=== PATIENT | male | born 1955 | race Caucasian/White ===

== ENCOUNTER 2022-01-31 09:34 | Outpatient (CLI) | payer BC, SELFPAY ==
--- OUTSIDE RECORDS SUMMARY | 2022-01-31 09:38 | XMS_ITS | Clinical Summary ---
:1955 Author Organization [facility] [place] [address] Care Team Providers Name Role Phone Ronnie Marquez MD Primary Care Provider Allergies No known active allergies Medications Medication Sig Dispensed Refills Start Date End Date Status HYDROcodone-acetamin Take 1-2 tablets by 0 Active ophen, 5-325 mg, mouth every 6 hours (NORCO) per tablet if needed for Pain Max acetaminophen dose: 4000 mg in 24 hrs. traMADoL (ULTRAM) 50 Take 50 mg by mouth 0 Active mg tablet every 6 hours. alfuzosin Take 10 mg by mouth 0 Active (UROXATRAL) 10 mg 2 times daily. Sustained-Release tablet losartan (COZAAR) Take 100 mg by mouth 0 Active 100 mg tablet once daily. atorvastatin Take 20 mg by mouth 0 Active (LIPITOR) 20 mg at bedtime. tablet finasteride Take 5 mg by mouth 0 Active (PROSCAR) 5 mg once daily. tablet aspirin chewable 81 Take 81 mg by mouth 0 Active mg chewable tablet once weekly. HYDROcodone-acetamin Take 1 tablet by 5 tablet 0 05/13/2020 Active ophen, 5-325 mg, mouth every 6 hours (NORCO) per if needed for Pain tabletIndications: Max acetaminophen Post-operative state dose: 4000 mg in 24 hrs. Active Problems No known active problems Social History Tobacco Use Types Packs/Day Years Used Date Former Smoker Smokeless Tobacco: Never Used Comments: quit at age 57 Alcohol Use Standard Drinks/Week Comments Yes 0 (1 standard drink = 0.6 oz pure alcoho l) Sex Assigned at Date Recorded Not on file Obstetrics History Last Filed Vital Signs Vital Sign Reading Time Taken Comments Blood Pressure 148/72 05/13/2020 9:00 AM BOAT OUTFITTER Pulse 74 05/13/2020 9:00 AM BOAT OUTFITTER Temperature 36.2 ??C (97.2 ??F) 05/13/2020 9:00 AM BOAT OUTFITTER Respiratory Rate 16 05/13/2020 9:00 AM BOAT OUTFITTER Oxygen Saturation 98% 05/13/2020 9:00 AM BOAT OUTFITTER Inhaled Oxygen Concentration - - Weight 105.5 kg (232 lb 9.4 oz) 05/13/2020 6:21 AM BOAT OUTFITTER Height 167.6 cm (5' 6) 05/13/2020 6:21 AM BOAT OUTFITTER Body Mass Index 37.54 05/13/2020 6:21 AM BOAT OUTFITTER Plan of Treatment Not on file Results Not on filefrom Last 3 Months Insurance Payer Benefit Plan / Subscriber ID Effective Dates Phone Addre ss Type Group BLUE CROSS [place] BLUE ADVANTAGE [id number] 2019-Presen [address] [address] [facility] [place] [address] (Home) [place] [id number] Advance Directives Latest Code Status on File Code Status Date Activated Date Inactivated Comments Full Code 05/13/2020 6:02 AM 05/13/2020 11:46 AM Code Status Discussion: Not Discussed Care Teams Waiver Analyst Relationship Specialty Start Date End Date Ronnie Marquez MD PCP - General Family Practice 05/06/[address] [place] [address]
--- OUTSIDE RECORDS SUMMARY | 2022-01-31 09:38 | XMS_ITS ---
:1955 Author Care Team Providers Name Role Phone ZELALEM XIAO MD Primary Care Provider [phone] Allergies Code Code System Name Reaction Severity Status Onset NKDA ? Medications Name Status Start Date Stop Date ? ? alfuzosin ER 10 mg tablet,extended release 24 hr Active ? Not available amlodipine 5 mg tablet Completed ? 0 TK 1 T PO D amoxicillin 875 mg-potassium clavulanate 125 mg tablet Completed ? 05/04/2020 atorvastatin 20 mg tablet Active ? Not av ailable azithromycin 250 mg tablet Completed ? 05/04 cephalexin 500 mg capsule Completed ? 2019 TK 1 C PO QID finasteride 5 mg tablet Active ? Not avai lable TK 1 T PO D hydrocodone 5 mg-acetaminophen 325 mg tablet Active ? Not available TAKE 1 TO 2 TABLETS BY MOUTH EVERY 6 HOURS NEEDED levofloxacin 500 mg tablet Active ? Not a vailable TK 1 T PO D losartan 100 mg tablet Active ? Not avail able metoprolol succinate ER 50 mg tablet,extended release 24 Complet ed ? 05/04/2020 hr phentermine 37.5 mg capsule Active ? Not available TK 1 C PO D prednisone 20 mg tablet Completed ? 05/04/20 20 TK 1 T PO D sulfamethoxazole 800 mg-trimethoprim 160 mg tablet Completed ? 05/04/2020 TK 1 T PO BID tramadol 50 mg tablet Active ? Not availa ble Virtussin AC 10 mg-100 mg/5 mL oral liquid Completed ? 05/04/2020 TK 5 TO 10 ML PO Q 6 H Problems Name Status Onset Date Source ? Calculus of Kidney and Ureter Active 03/14/2019 De story Procedures Date Name Performed by ? ? Appendectomy Information not avai lable Results Lab Results Date Name Specimen Result Interpretation Description Value Range Status Address ? ? Urinalysis, Dipstick Urine ? No observation recorded. ? Urinalysis, Dipstick ? Color-Status Yellow ? Clarity-Status Clear ? Blood-Status Large ? ? Past Encounters None recorded. Social History Tobacco Smoking Status Former Smoker Vaccine List None recorded. Plan of Care Reminders Provider Appointments None recorded. ? ? Lab None recorded. ? ? Referral None recorded. ? ? Procedures None recorded. ? ? Surgeries None recorded. ? ? Imaging None recorded. ? ? Vitals Height Weight BMI 5 ft 6 in 225 lbs 36.3 kg/m2
[2022-01-31 16:20] LABS: Potassium* 5.3 mmol/L (3.6-5.1); Sodium* 138 mmol/L (135-149)
[2022-01-31 16:23] LABS: Creatinine* 0.6 mg/dL (0.5-1.5); Estimated Glomerular Filt Rate 108 ml/min
[2022-01-31 16:24] LABS: Calcium* 9.4 mg/dL (8.4-10.6); Triglycerides* 67 mg/dL (40-149)
[2022-01-31 16:46] LABS: PSA Screen* 1.95 ng/mL (0.10-4.00)
[2022-01-31 17:10] LABS: Blood Urea Nitrogen* 18 mg/dL (7-30); Carbon Dioxide* 29 mmol/L (20-32); Chloride* 104 mmol/L (96-114); Cholesterol* 179 mg/dL (90-199); Glucose* 110 mg/dL (60-115); HDL Cholesterol* 51 mg/dL (>=40); LDL Cholesterol Calculated 115 mg/dL (<100)
== END 2022-01-31 09:35 | disposition home or self-care (01) ==
PROVIDERS: PCP Family Medicine; Visit Provider Family Medicine
DX: Z00.00 Encounter for general adult medical examination without abnormal findings (principal); E78.5 Hyperlipidemia, unspecified; I10 Essential (primary) hypertension; N40.0 Benign prostatic hyperplasia without lower urinary tract symptoms; R60.9 Edema, unspecified; Z12.5 Encounter for screening for malignant neoplasm of prostate; Z13.6 Encounter for screening for cardiovascular disorders
CPT/HCPCS: 80048; 80061; 84153

== ENCOUNTER 2022-04-17 12:55 | Emergency (ER) | payer BC, SELFPAY ==
[2022-04-17 13:00] VITALS: BP 147/85; PULSE 79; RESP 18; TEMP 36.2; O2SAT 96; BMI 36.2
--- NOTE | 2022-04-17 13:11 | CRLHL7_ITS ---
For Patients: As a result of the Cures Act, medical imaging exams and procedure reports are released immediately into your electronic medical record. You may view this report before your referring provider. If you have questions, please contact your health care provider. INDICATION: Knee injury from fall TECHNIQUE: Knee radiograph 3 views left COMPARISON: 06/07/2018 FINDINGS: Bone: There is comminuted, depressed intra-articular fracture of the lateral tibial plateau. Joint: Mild 3 compartment osteoarthritis is present. Minimal chondrocalcinosis is seen. A small joint effusion is present, likely due to hemarthrosis. Soft tissue: Unremarkable. No radiopaque foreign bodies are seen. IMPRESSIONS: 1. There is comminuted, depressed intra-articular fracture of the lateral tibial plateau. 2. A small joint effusion is present, likely due to hemarthrosis. Dictated by Saul Cramer MD @ 04/17/2022 1:38:02 PM Dictated by: Saul Cramer MD @ 04/17/2022 13:38:06 (Electronically Signed)
--- NOTE | 2022-04-17 14:38 | ED.LOWEXIN ---
HPI - Extremity Injury (Lower) General Chief Complaint: Extremity Pain/Injury, Lower Stated Complaint: Fell 6 ft off ladder, hurt left knee Time Seen by Provider: 04/17/22 14:34 History of Present Illness HPI Narrative: This 66-year-old male comes in with injury to his left knee. He states that he had climbed up a ladder and was attempting to step from the ladder onto a scaffolding. The ladder fell away from the scaffolding in the scaffolding fell away from a ladder causing him to fall. He states that he went down about 6 ft and landed on his feet and then onto his left knee and his left side. Since then he has not been able to ambulate on his left knee. He did not have loss of consciousness and does not report any other injury. Related Data Home Medications Medication Instructions Recorded Confirmed aspirin 81 mg tablet,delayed 81 mg PO QDAY 01/03/22 04/17/22 release Previous Rx's Medication Instructions Recorded alfuzosin 10 mg tablet,extended 10 mg PO BID #180 tabs 01/19/22 release 24 hr atorvastatin 20 mg tablet 20 mg PO QPM #90 tabs 01/31/22 finasteride 5 mg tablet 5 mg PO QDAY #90 tabs 01/31/22 losartan 100 mg tablet 100 mg PO QDAY #90 tabs 01/31/22 tramadol 50 mg tablet 50 mg PO Q6H PRN pain #60 tabs 02/22/22 Crutches- Adult #1 ea 04/17/22 hydrocodone 5 mg-acetaminophen 325 1 tab PO Q4-6H PRN pain #20 tabs 04/17/22 mg tablet Allergies Allergy/AdvReac Type Severity Reaction Status Date / Time No Known Drug Allergies Allergy Verified 04/17/22 13:06 Review of Systems Status of ROS: Reports: 10 or more systems reviewed and unremarkable except as noted in History and below Narrative: Constitutional: No fevers, no weight gain or loss. Eyes: No discharge. No vision changes. HENT: No congestion, no sore throat, no ear pain. Cardiovascular: No chest pain, no palpitations. Respiratory: No shortness of breath, no wheezes, no cough. Gastrointestinal: No abdominal pain, no vomiting, no diarrhea. Genitourinary: No dysuria, no hematuria. Musculoskeletal: Left knee injury as described above. Skin: No rashes, no pruritis. Neurological: No dizziness, weakness, sensory change, speech change. Endo/Heme/Allergies: No bruising or bleeding. No polydipsia. Pysch: no suicidality, no anxiety, no insomnia. All other systems reviewed and are negative. [facility] Medical History History of needle biopsy of prostate with negative result Surgical History History of arthroscopy of right knee Family History Other Diabetes Prostate cancer Social History Smoking Status: Former smoker Exam Narrative: Exam Narrative: Constitutional: Well-developed, well-nourished, no acute distress. HEENT: Normocephalic, atraumatic. Neck: Normal range of motion. Nontender. Supple. Heart: Intact distal pulses. Lungs: No chest discomfort. No wheezes, rhonchi, or rales. Abdomen: Nontender. Back: Normal range of motion. Extremities: Left knee has diffuse tenderness. He is unable to bear weight on his left knee without severe pain. There is no obvious effusion. He is able to lift his leg from the bed without difficulty. Skin: Intact. No rash. Warm. No erythema or pallor. Neurologic: No altered sensation. No weakness. Alert and oriented. Psychiatric: No suicidality. No anxiety or depression. No insomnia. Nursing notes and vitals signs are reviewed. Const: Vital Signs, click to edit/add: Vital Signs - 24 hr 04/17/22 13:00 Temperature 97.2 F L Pulse Rate [Right Pulse Oximeter] 79 Respiratory Rate 18 Blood Pressure [Le ft Upper Arm] 147/85 H Pulse Oximetry 96 Oxygen Delivery Me thod Room Air Course Vital Signs Vital signs: Initial Vital Signs Temperature 97.2 F L 04/17/22 13:00 Temperature Source Temporal Artery Scan 04/17/22 13:00 Pulse Rate 79 04/17/22 13:00 Respiratory Rate 18 04/17/22 13:00 Blood Pressure 147/85 H 04/17/22 13:00 Blood Pressure Mean 105 04/17/22 13:00 Blood Pressure Position Sitting 04/17/22 13:00 Pulse Oximetry 96 04/17/22 13:00 Oxygen Delivery Method 04/17/22 13:00 Vital Signs Temperature 97.2 F L 04/17/22 13:00 Pulse Rate 79 04/17/22 13:00 Respiratory Rate 18 04/17/22 13:00 Blood Pressure 147/85 H 04/17/22 13:00 Pulse Oximetry 96 04/17/22 13:00 Oxygen Delivery Method 04/17/22 13:00 Temperature 97.2 F L 04/17/22 13:00 Pulse Rate 79 04/17/22 13:00 Respiratory Rate 18 04/17/22 13:00 Blood Pressure 147/85 H 04/17/22 13:00 Pulse Oximetry 96 04/17/22 13:00 Oxygen Delivery Method 04/17/22 13:00 MDM - Extremity Injury (Lower) MDM Narrative Medical decision making narrative: This patient comes in with an injury to his left knee. He has no tenderness in his back and no loss of consciousness or other injury. X-ray imaging of the left knee does show a tibial plateau fracture. The patient received a E knee immobilizer and crutches. Arrangements are made for follow-up appointment with orthopedic clinic. He received a prescription for [place] also. Imaging Data XR L Knee: Radiologist's impression: 1. There is comminuted, depressed intra-articular fracture of the lateral tibial plateau. 2. A small joint effusion is present, likely due to hemarthrosis. Discharge Plan Discharge Clinical Impression: Closed fracture of tibial plateau Patient Disposition: Home, Self-Care Condition: Unchanged Additional Instructions: Wear knee immobilizer and use crutches. No weight-bearing on the left leg. Take pain medicine as needed and directed. Follow up with orthopedic clinic as scheduled. Prescriptions: New hydrocodone-acetaminophen 5-325 mg tablet 1 tab PO Q4-6H PRN (Reason: pain) Qty: 20 0RF (DME) Crutches- Adult Misc See Rx Instructions .ROUTE .MEDSUPPLY Qty: 1 0RF Rx Instructions: As directed No Action atorvastatin 20 mg tablet 20 mg PO QPM Qty: 90 3RF finasteride 5 mg tablet 5 mg PO QDAY Qty: 90 3RF losartan 100 mg tablet 100 mg PO QDAY Qty: 90 3RF aspirin 81 mg tablet,delayed release (DR/EC) 81 mg PO QDAY alfuzosin 10 mg tablet extended release 24 hr 10 mg PO BID Qty: 180 1RF Rx Instructions: administer after the same meal each day tramadol 50 mg tablet 50 mg PO Q6H PRN (Reason: pain) Qty: 60 1RF Follow Up/Referrals: Ronnie Marquez MD [Primary Care Provider] - Stand Alone Forms: [employer] Info Instructions
--- OUTSIDE RECORDS SUMMARY | 2022-04-17 14:53 | XMS_ITS ---
:1955 Author Care Team Providers Name Role Phone ZELALEM XIAO MD Primary Care Provider [phone] Allergies Code Code System Name Reaction Severity [...] Calculus of Kidney and Ureter Active 03/14/2019 Vt story Procedures Date Name Performed by ? [...]
--- OUTSIDE RECORDS SUMMARY | 2022-04-17 14:53 | XMS_ITS | Clinical Summary ---
:1955 Author Organization [employer] [facility] [place] [address] Care Team Providers Name Role Phone Ronnie [...] Comments Blood Pressure 148/72 05/13/2020 9:00 AM REVENUE FIELD AUDITOR Pulse 74 05/13/2020 9:00 AM REVENUE FIELD AUDITOR Temperature 36.2 ??C (97.2 ??F) 05/13/2020 9:00 AM REVENUE FIELD AUDITOR Respiratory Rate 16 05/13/2020 9:00 AM REVENUE FIELD AUDITOR Oxygen Saturation 98% 05/13/2020 9:00 AM REVENUE FIELD AUDITOR Inhaled Oxygen Concentration - - Weight 105.5 kg (232 lb 9.4 oz) 05/13/2020 6:21 AM REVENUE FIELD AUDITOR Height 167.6 cm (5' 6) 05/13/2020 6:21 AM REVENUE FIELD AUDITOR Body Mass Index 37.54 05/13/2020 6:21 AM REVENUE FIELD AUDITOR Plan of Treatment Not on file Results Not on filefrom Last 3 Months Insurance Payer Benefit Plan / Subscriber ID Effective Dates Phone Addre ss Type Group BLUE CROSS [place] BLUE ADVANTAGE [id number] 2019-Presen [address] [address] [facility] [address] (Home) [place] [id number] Advance Directives Latest Code Status on File Code Status Date Activated Date Inactivated Comments Full Code 05/13/2020 6:02 AM 05/13/2020 11:46 AM Code Status Discussion: Not Discussed Care Teams Tack Cleaner Relationship Specialty Start Date End Date Ronnie Marquez MD PCP - General Family Practice 05/06/[address] [place] [address]
== END 2022-04-17 15:15 | disposition home or self-care (01) ==
LOC: ED 14:50
PROVIDERS: Emergency Provider Emergency Medicine Emergency Medical Services; PCP Family Medicine
DX: S82.109A Unspecified fracture of upper end of unspecified tibia, initial encounter for closed fracture (principal)
CPT/HCPCS: 73562; 99283; 99284; 99285

== ENCOUNTER 2022-06-29 15:00 | Outpatient (RCR) | payer BC, SELFPAY | END 2022-08-15 09:03 | disposition home or self-care (01) | PROVIDERS: PCP Family Medicine; Visit Provider Orthopaedic Surgery | DX: S82.143D Displaced bicondylar fracture of unspecified tibia, subsequent encounter for closed fracture with routine healing (principal); Z51.89 Encounter for other specified aftercare | CPT/HCPCS: 97110; 97116; 97162 ==

== ENCOUNTER 2023-05-08 08:52 | Outpatient (CLI) | payer MEDICARE, SELFPAY | END 2023-05-08 08:53 | disposition home or self-care (01) | PROVIDERS: PCP Family Medicine; Visit Provider Family Medicine | DX: I10 Essential (primary) hypertension (principal); Z12.5 Encounter for screening for malignant neoplasm of prostate | CPT/HCPCS: 80048; 80061; 84153 ==

== ENCOUNTER 2024-02-25 13:14 | Outpatient (CLI) | payer MEDICARE, SELFPAY ==
--- OUTSIDE RECORDS SUMMARY | 2024-02-25 13:18 | XMS_ITS | Clinical Summary ---
Author Organization [facility] Address [place], [place] [address] Care Team Providers Care Food Consultant Name Role Phone Ronnie Marquez MD Primary Care Provider [phone] Allergies No known active allergies Medications Medication Sig Dispensed Refills Start Date End Date Status HYDROcodone-acetam inophen, 5-325 mg, (NORCO) per tablet Take 1-2 tablets by mouth every 6 hours if needed for Pain Max acetaminophen dose: 4000 mg in 24 hrs. Active traMADoL (ULTRAM) 50 mg tablet Take 50 mg by mouth every 6 hours. Active alfuzosin (UROXATRAL) 10 mg Sustained-Release tablet Take 10 mg by mouth 2 times daily. Active losartan (COZAAR) 100 mg tablet Take 100 mg by mouth once daily. Active atorvastatin (LIPITOR) 20 mg tablet Take 20 mg by mouth at bedtime. Active finasteride (PROSCAR) 5 mg tablet Take 5 mg by mouth once daily. Active aspirin chewable 81 mg chewable tablet Take 81 mg by mouth once weekly. Active HYDROcodone-acetam inophen, 5-325 mg, (NORCO) per tabletIndications: Post-operative state Take 1 tablet by mouth every 6 hours if needed for Pain Max acetaminophen dose: 4000 mg in 24 hrs. 5 tablet 05/13/2020 Active Active Problems No known active problems Social History Tobacco Use Types Packs/Day Years Used Date Smoking Tobacco: Former Smokeless Tobacco: Never Comments:quit at age 57 Alcohol Use Standard Drinks/Week Comments Yes 0 (1 standard drink = 0.6 oz pur e alcohol) Sex and Gender Information Value Date Recorded Sex Assigned at Not on file Gender Identity Not on file Sexual Orientation Not on file Obstetrics History Last Filed Vital Signs Vital Sign Reading Time Taken Comments Blood Pressure 148/72 05/13/2020 9:00 AM PAINTER SPRAY Pulse 74 05/13/2020 9:00 AM PAINTER SPRAY Temperature 36.2 ??C (97.2 ??F) 05/13/2020 9:00 AM CS T Respiratory Rate 16 05/13/2020 9:00 AM PAINTER SPRAY Oxygen Saturation 98% 05/13/2020 9:00 AM PAINTER SPRAY Inhaled Oxygen Concentration - - Weight 105.5 kg (232 lb 9.4 oz) 05/13/2020 6:21 AM PAINTER SPRAY Height 167.6 cm (5' 6) 05/13/2020 6:21 AM PAINTER SPRAY Body Mass Index 37.54 05/13/2020 6:21 AM PAINTER SPRAY Plan of Treatment Not on file Advance Directives * Full Code (Latest Code Status on File) Date Activated Date Inactivated Comments 05/13/2020 6:02 AM 05/13/2020 11:46 AM Question Answer Comments Code Status Discussion: Not Discussed Care Teams Food Consultant Relationship Specialty Start Date End Date Ronnie Marquez MD PCP - General Family Practice 05/06/20
--- OUTSIDE RECORDS SUMMARY | 2024-02-25 13:18 | XMS_ITS | Data Portability ---
Author Organization [facility], [facility] Address [address] [place] [address] Care Team Providers Care Insurance Adjustor Name Role Phone ZELALEM XIAO Primary Care Provider Assessment No assessment recorded. Plan of Treatment Reminders Order Date Submit Date Provider Last Modified By Organization Details Last Modified Time Details Appointments None recorded. Lab urinalysis, dipstick 2019 020 [email or web address] Not available 0 14:38:20 Referral None recorded. Procedures None recorded. Surgeries cystolithol apaxy (SURG) 2019 020 [email or web address] Not available 0 12:28:21 Imaging None recorded. Medication Orders None recorded. Patient TargetsNo targets recorded. Patient InstructionsNo instructions recorded. Reason for Referral None Reported. Results Created Date Observation Date Name Description Value Unit Range Abnormal Flag Note LastModifiedBy Organization Detail LastModifiedTime 05/04/2020 urina lysis , dipst ick Color-Status Yellow Not Available [facility] [address], [place], [address], 05/04/2020 14:37:48 05/04/2020 urina lysis , dipst ick Clarity-Stat us Clear Not Available [facility] [address], [place], [address], 05/04/2020 14:37:48 05/04/2020 urina lysis , dipst ick Blood-Status Large Not Available [facility] [address], [place], [address], 05/04/2020 14:37:48 Result Notes None recorded. Problems Name Problem SNOMED Code Status Onset Date Resolution Date Notes Provider Name and Address Organization Details Recorded Time Calculus of kidney and ureter 628170434 Active 2018 N20.2 : Calculus of kidney with calculus of ureter Not Available [facility] 0 02:04:28 Problem Notes None recorded. Procedures Surgical History Date Name Laterality Status Provider Name and Address Organization Details Recorded Time Appendectomy completed Charan King MD [address], [place], [address], [facility] 05/04/2020 14:35:47 Imaging Results None recorded. Procedure Notes None recorded. Medical Equipment None Reported. Allergies No known drug allergies Medications Name Sig Start Date Stop Date Status Note LastModified by Organization Details LastModified Time atorvastatin 20 mg tablet TAKE 1 TABLET BY MOUTH AT BEDTIME active Not Available Not Available No t Available azithromycin 250 mg tablet 05/04 completed Not Available Not Available Not Available metoprolol succinate ER 50 mg tablet,exten ded release 24 hr TK 1 T PO D 05/04 completed Not Available Not Available Not Available hydrocodone 5 mg-acetamino phen 325 mg tablet TAKE 1 TO 2 TABLETS BY MOUTH EVERY 6 HOURS NEEDED active Not Available Not Available No t Available prednisone 20 mg tablet TK 1 T PO D 05/04 completed Not Available Not Available Not Available amlodipine 5 mg tablet TK 1 T PO D 05/04 completed Not Available Not Available Not Available sulfamethoxa zole 800 mg-trimethop rim 160 mg tablet TK 1 T PO BID 05/04 completed Not Available Not Available Not Available tramadol 50 mg tablet TK 1 TO 2 TS PO Q 6 H PRN active Not Available Not Available No t Available cephalexin 500 mg capsule TK 1 C PO QID 05/04 completed Not Available Not Available Not Available levofloxacin 500 mg tablet TK 1 T PO D active Not Available Not Available No t Available losartan 100 mg tablet TK 1 T PO D active Not Available Not Available No t Available finasteride 5 mg tablet TK 1 T PO D active Not Available Not Available No t Available phentermine 37.5 mg capsule TK 1 C PO D active Not Available Not Available No t Available amoxicillin 875 mg-potassium clavulanate 125 mg tablet TK ONE T PO BID FOR 10 DAYS 05/04 completed Not Available Not Available Not Available alfuzosin ER 10 mg tablet,exten ded release 24 hr TK 1 T PO BID active Not Available Not Available No t Available Virtussin AC 10 mg-100 mg/5 mL oral liquid TK 5 TO 10 ML PO Q 6 H 05/04 completed Not Available Not Available Not Available Vitals Date Recorded Body height Body mass index (BMI) Body weight Provider Name and Address Organization Details Last Updated DateTime 05/04/2020 167.64 cm 36.3 kg/m2 372654.28 g Charan King MD [address],[facility] [address], [place], [address] 05/04/2020 14:32:25 Social History None recorded. Functional Status None recorded. Mental Status None recorded. Family History Relationship Description Onset Age of this Age Resolved Age Notes LastModified by Organization Details LastModified Time Father Family history of malignant neoplasm of prostate [email or web address] Not available 2019 14:34:58 Father Malignant tumor of stomach [email or web address] Not available 2019 14:35:12 Mother Family history of diabetes mellitus [email or web address] Not available 2019 14:35:18 Medical History Condition Response High Blood Pressure Y Kidney Stones Y High Cholesterol Y Past Encounters Encounter ID Performer Location Encounter Start Date Encounter Closed Date Diagnosis/Indication Diagnosis SNOMED-CT Code Diagnosis ICD10 Code [id number] Charan King MD [facility] [address] [place] [address] 05/04/2020 14:16:24 05/10/2020 09:15:28 Calculus of kidney and ureter 377358401 N20.2 Urinary bladder stone 70 561153 N21.0 Lower urin jim tract symptoms due to benign prostatic hypertrophy 3884239015 9101 N40.1 Health Concerns Section Related Observation LastModified by Organization Detai ls LastModified Time None Recorded Concern Status LastModified by Organization Details LastModified Time None Recorded Advance Directives Directive None Recorded Payers Encounter Date Sequence Insurance Name Policy Number Policy Zhao Covered Member ID Zhao Member ID Guarantor Name 05/04/2020 1 [id number] Sonido Stubbs [id number] Sonido Stubbs Notes Date Note Type Note Provider Name and Address Organization Details Recorded Time 05/04/2020 text/html HPI Notes: 64 yo male with history of kidney stones. He passed a kidney stone last year. He reports an increase in urinary frequency. CT scan (04/28/20) revealed a 1 cm bladder stone and 3 mm stone in Left lower pole. He voids every 2-3 hours during the day and 3-4x/night. He notes urgency. He denies dysuria or hematuria. - UA - large blood - no LE CT scan (04/28/20) - Left - 3 mm stone (lower pole) - RIght - no stones - Bladder - 1 cm stone Charan King MD [address], [place], [address], [facility] 05/08/2020 17:59:17
== END 2024-02-25 13:15 | disposition home or self-care (01) ==
PROVIDERS: PCP Family Medicine; Visit Provider Family Medicine
DX: I10 Essential (primary) hypertension (principal); E78.00 Pure hypercholesterolemia, unspecified
CPT/HCPCS: 80053; 80061

== ENCOUNTER 2024-03-06 14:35 | Outpatient (CLI) | payer MEDICARE, SELFPAY ==
--- OUTSIDE RECORDS SUMMARY | 2024-03-06 14:36 | XMS_ITS | Clinical Summary ---
Author Organization [facility] Address [place], [place] [address] Care Team Providers Care Recreation Director Name Role Phone Ronnie Marquez MD Primary Care Provider [phone] Allergies No known active allergies Medications Medication [...] Comments Blood Pressure 148/72 05/13/2020 9:00 AM METAL TECHNICIAN Pulse 74 05/13/2020 9:00 AM METAL TECHNICIAN Temperature 36.2 ??C (97.2 ??F) 05/13/2020 9:00 AM CS T Respiratory Rate 16 05/13/2020 9:00 AM METAL TECHNICIAN Oxygen Saturation 98% 05/13/2020 9:00 AM METAL TECHNICIAN Inhaled Oxygen Concentration - - Weight 105.5 kg (232 lb 9.4 oz) 05/13/2020 6:21 AM METAL TECHNICIAN Height 167.6 cm (5' 6) 05/13/2020 6:21 AM METAL TECHNICIAN Body Mass Index 37.54 05/13/2020 6:21 AM METAL TECHNICIAN Plan of Treatment Upcoming Encounters Date Type Department Care Team (Late st Contact Info) Description 03/06/2024 3:00 PM CDT Ancillary Procedure [facility] at [facility] [address] [place] [address] Advance Directives * Full Code (Latest Code Status on File) Date Activated Date Inactivated Comments 05/13/2020 6:02 AM 05/13/2020 11:46 AM Question Answer Comments Code Status Discussion: Not Discussed Care Teams Recreation Director Relationship Specialty Start Date End Date Ronnie Marquez MD PCP - General Family Practice 05/06/20
[2024-03-06] MEDS: PERFLUTREN LIPID MICROSPHERES 2 ML VIAL IVP (15:13)
[2024-03-06 15:39] VITALS: BP 160/75; PULSE 105
--- NOTE | 2024-03-06 17:19 | W.PM.STED ---
Stress Test Note Date Date Seen: 03/06/24 Date of test: 03/06/24 Providers Primary care provider: Ronnie Marquez Stress test physician: Rina Haddad Stress Test Note Stress test ordered: Stress Echo Indication for test: Dyspnea Stress test medicine: Definity Results discussion: Resting EKG: Sinus tachycardia, 107 beats per minute. Artifact present. Resting blood pressure: 138/86 Stress test: Patient was consented on standard Eusebio protocol treadmill exercise stress echo, agreed to proceed. Patient was able to exercise 3 minutes 41 seconds before becoming too dyspneic to continue. He had no chest pain, no arrhythmia was noted. This was equivalent of 5.4 Mets. He did achieve a maximum heart rate of 152 beats per minute which was 116% of a calculated target heart rate of 131. He did have a maximal blood pressure of 220/110 but does have medication for hypertension. There was significant artifact during exercise but during recovery there was no documentable evidence of any ischemia. He had a calculated rate pressure product of 26,620. Blood pressure did recover after exercise was stopped. His shortness of breath improved in recovery. Impression: Subjectively positive for significant dyspnea but no chest pain, objectively negative for ischemic change but poor exercise tolerance. Follow up suggested: Await echo images to couple this for a full formal diagnostic. Patient discharge in stable condition. He is aware that he is to wait for contact from his primary care provider regarding final imaging.
== END 2024-03-06 14:36 | disposition home or self-care (01) ==
LOC: STRESS 14:35
PROVIDERS: PCP Family Medicine; Visit Provider Family Medicine
DX: R06.09 Other forms of dyspnea (principal)
CPT/HCPCS: 93016; 93325; 93351; Q9957

== ENCOUNTER 2024-12-26 04:16 | Emergency (ER) | payer MEDICARE, SELFPAY ==
--- OUTSIDE RECORDS SUMMARY | 2020-03-20 04:51 | XMS_ITS | Continuity of Care Document ---
Author Organization [facility] Address [address] [place] [address] Phone Care Team Providers Care Property Insurance Claims Examiner Name Role Phone No Information Unavailable Unavailable Procedures Procedure Date Ua Dip Stik/tablt;wo Micro Non Advance Directives Directive Yes / No Effective Date File Name No Information Encounters Encounter Description Practice Location Reason(s) For Visit Diagnoses Date Provider Providers Copied on Encounter [facility], [address], [place], [place], [id number] , tel: [phone] No Information 0 No Information [facility], [address], [place], [place], [id number] , [place] tel: [phone] [facility] Enlarged prostate with lower urinary tract symptomsOther obstructive and reflux uropathyElevated prostate specific antigen [PSA] 8 No Information Referring Provider: Sj Ring, [address], [place], [address]. tel:[phone] [facility], [address], [place], [place], [id number] , tel: [phone] [facility] Elevated prostate specific antigen [PSA] 8 No Information Referring Provider: Sj Ring, [address], [place], [address]. tel:[phone] [facility], [address], [place], [place], [id number] , [place] tel: [phone] [facility] Elevated prostate specific antigen [PSA]Enlarged prostate with lower urinary tract symptomsOther obstructive and reflux uropathy 8 No Information Referring Provider: Sj Ring, [address], [place], [address]. tel:[phone] [facility], [address], [place], [place], [id number] , tel: [phone] [facility] Elevated prostate specific antigen [PSA]Enlarged prostate with lower urinary tract symptomsOther obstructive and reflux uropathy 8 No Information Referring Provider: Sj Ring, [address] [facility] [address], [place], [address]. tel:[phone] [facility], [address], [place], [place], [id number] , tel: [phone] [facility] Elevated prostate specific antigen [PSA]Enlarged prostate with lower urinary tract symptomsOther obstructive and reflux uropathy 0 8 No Information Referring Provider: Sj Ring, [address] [facility] [address], [place], [address]. tel:[phone] Family History Family Member Type Diagnosis Age At Onset No Information Payers Payer name Insurance type Covered democrat ID Authoriza tivimal(s) [facility] [id number] Social History Type Description Quantity Date Captured Comments Sex Male Smoking Status No Information Chief Complaint And Reason For Visit No Information Reason For Referral Reason For Referral No Information History Of Present Illness Encounter Date Complaint History Of Prese nt Illness No Information Functional Status Date Functional Assessmen t No Information Instructions Date Instruction Additional Infor mation No Information Assessments Type Assessment Date No Information Patient Care Teams Name Effective Dates (start - stop) Status Members No Information
--- OUTSIDE RECORDS SUMMARY | 2020-03-20 04:51 | XMS_ITS | Continuity of Care Document ---
Author Organization [facility] Address [address] [place] [address] Phone Care Team Providers Care Dehydrator Operator Name Role Phone No Information Unavailable Unavailable Procedures Procedure Date Ua Dip Stik/tablt;wo Micro Non Advance Directives Directive Yes / No Effective Date File Name No Information Encounters Encounter Description Practice Location Reason(s) For Visit Diagnoses Date Provider Providers Copied on Encounter Medical [facility], [address], [place], [id number] , tel: [phone] No Information 0 No Information [facility], [address], [place], [place], [id number] , [place] tel: [phone] [facility] Enlarged prostate with lower urinary tract symptomsOther obstructive and reflux uropathyElevated prostate specific antigen [PSA] 8 No Information Referring Provider: Sj Ring, [address], [place], [address]. tel:[phone] [facility], [address], [place], [place], [id number] , tel: [phone] [facility] Elevated prostate specific antigen [PSA] 8 No Information Referring Provider: Sj Ring, [address], [place], [address]. tel:[phone] [facility], [address], [place], [id number] , [place] tel: [phone] [facility] Elevated prostate specific antigen [PSA]Enlarged prostate with lower urinary tract symptomsOther obstructive and reflux uropathy 8 No Information Referring Provider: Sj Ring, [address], [place], [address]. tel:[phone] [facility], [address], [place], [place], [id number] , [place] tel: [phone] [facility] Elevated prostate specific antigen [PSA]Enlarged prostate with lower urinary tract symptomsOther obstructive and reflux uropathy 8 No Information Referring Provider: Sj Ring, [address] [facility] [address], [place], [address]. tel:[phone] [facility], [address], [place], [place], [id number] , tel: [phone] [facility] Elevated prostate specific antigen [PSA]Enlarged prostate with lower urinary tract symptomsOther obstructive and reflux uropathy 0 8 No Information Referring Provider: Sj Ring, [address] [facility] [facility] [address], [place], [address]. tel:[phone] Family History Family Member Type Diagnosis Age At Onset No Information Payers Payer name Insurance type Covered libertarian ID Authorkennedia gabriel(s) [facility] [id number] Social History Type Description Quantity Date Captured Comments Sex Male Smoking Status No Information Sexual Orientation Straight or heterosexual Chief Complaint And Reason For Visit No [...]
--- OUTSIDE RECORDS SUMMARY | 2024-12-26 04:18 | XMS_ITS | Clinical Summary ---
Author Organization [facility] Address [address] [place] [address] Care Team Providers Care Gericare Aide Teacher Name Role Phone Ronnie Marquez MD Primary Care Provider Allergies No known active allergies Medications HYDROcodone-ac etaminophen, 5-325 mg, (NORCO) per tablet Take 1-2 tablets by mouth every 6 hours if needed for Pain Max acetaminophen dose: 4000 mg in 24 hrs. Active traMADoL (ULTRAM) 50 mg tablet Take 50 mg by mouth every 6 hours. Active alfuzosin (UROXATRAL) 10 mg Sustained-Rele ase tablet Take 10 mg by mouth 2 times daily. Active losartan (COZAAR) 100 mg tablet Take 100 mg by mouth once daily. Active atorvastatin (LIPITOR) 20 mg tablet Take 20 mg by mouth at bedtime. Active finasteride (PROSCAR) 5 mg tablet Take 5 mg by mouth once daily. Active aspirin chewable 81 mg chewable tablet Take 81 mg by mouth once weekly. Active HYDROcodone-ac etaminophen, 5-325 mg, (NORCO) per tabletIndicati ons:Post-opera tive state Take 1 tablet by mouth every 6 hours if needed for Pain Max acetaminophen dose: 4000 mg in 24 hrs. 5 tablet 05/13/2020 9:34 AM SCHEDULING CLERK 0 Active Active Problems No known active problems Social History Tobacco Use Types Packs/Day Years Used Date Smoking Tobacco: Former Smokeless Tobacco: Never Comments:quit at age 57 Alcohol Use Standard Drinks/Week Comments Yes 0 (1 standard drink = 0.6 oz pur e alcohol) Sex and Gender Information Value Date Recorded Sex Assigned at Not on file Legal Sex Male 10:54 AM CDT Gender Identity Not on file Sexual Orientation Not on file Obstetrics History Last Filed Vital Signs Vital Sign Reading Time Taken Comments Blood Pressure 148/72 05/13/2020 9:00 AM SCHEDULING CLERK Pulse 74 05/13/2020 9:00 AM SCHEDULING CLERK Temperature 36.2 C (97.2 F) 05/13/2020 9:00 AM SCHEDULING CLERK Respiratory Rate 16 05/13/2020 9:00 AM SCHEDULING CLERK Oxygen Saturation 98% 05/13/2020 9:00 AM SCHEDULING CLERK Inhaled Oxygen Concentration - - Weight 105.5 kg (232 lb 9.4 oz) 05/13/2020 6:21 AM SCHEDULING CLERK Height 167.6 cm (5' 6) 05/13/2020 6:21 AM SCHEDULING CLERK Body Mass Index 37.54 05/13/2020 6:21 AM SCHEDULING CLERK Plan of Treatment Not on file Insurance [employer] MED[employer] ADVANTAGE MR Member Subscriber Plan / Payer (Ef fective 2023-Present) Name:Sonido Stubbs Maryuri Relation to Subscriber:Self Name:Sonido Stubbs Payer ID:[id number] (NAIC) Type:Not on file Address: [address] Advance Directives * Full Code (Latest Code Status on File) Date Activated Date Inactivated Comments 05/13/2020 6:02 AM 05/13/2020 11:46 AM Question Answer Comments Code Status Discussion: Not Discussed Care Teams Gericare Aide Teacher Relationship Specialty Start Date End Date Ronnie Marquez MD [address] [place] [address] PCP - General Family Practice 03/06/24
[2024-12-26 04:20] VITALS: BP 155/85; PULSE 93; RESP 18; TEMP 36.7; O2SAT 96; BMI 37.1
--- NOTE | 2024-12-26 04:21 | ED_ITS ---
HPI - Back Pain/Injury General Time Seen by Provider: 04:21 Date Seen: 12/26/24 Chief Complaint: Back Injury/Pain Stated Complaint: lower back, left leg pain Time Seen by Provider: 12/26/24 04:20 Source: patient Mode of arrival: ambulatory Limitations: no limitations History of Present Illness HPI Narrative: A 69-year-old male with history of back pain comes in today with back pain and left leg pain. Patient notes for the last week he has had left low back pain radiating into the left leg. No leg weakness, no bowel or bladder incontinence, no known injury. Pain was bed tonight he could sleep. He has been taking Tylenol, ibuprofen, lidocaine patch. Had similar on the right side in the past. Related Data Previous Rx's ?Medication ?Instructions ?Recorded alfuzosin 10 mg tablet,extended 10 mg PO BID #180 tabs 01/23/24 release 24 hr chlorthalidone 25 mg tablet 12.5 mg (1/2 x 25 mg) PO Q DAY #90 02/25/24 tabs finasteride 5 mg tablet 5 mg PO QDAY #90 tabs losartan 100 mg tablet 100 mg PO QDAY #90 tabs 12/11 rosuvastatin 10 mg tablet 10 mg PO QDAY #90 tabs 02/26 tramadol 50 mg tablet 50 mg PO Q6H PRN pain #60 ta bs 10/28/24 Allergies Allergy/AdvReac Type Severity Reaction Status Date / Time No Known Drug Allergies Allergy Verified 02/25/24 12:37 [facility] Medical History Closed fracture of tibial plateau ?S82.143A - Displaced bicondylar fracture of unspecified tibia, initial encounter for closed fracture (ICD-10) History of needle biopsy of prostate with negative result ?Z98.890 - Other specified postprocedural states (ICD-10) Surgical History History of arthroscopy of right knee ?Z98.890 - Other specified postprocedural states (ICD-10) Family History Other Diabetes Prostate cancer Social History Smoking Status: Former smoker How often do you have a drink containing alcohol: 2-3 times a week AUDIT-C Alcohol total score: 3 Non-prescribed substance use: denies use Exam Narrative: Exam Narrative: General: Well-developed and well-nourished, no acute distress Head: Atraumatic and normocephalic Eyes: Pupils are equal reactive, extraocular motions intact, conjunctiva clear ENT: External nose and ears are normal, posterior pharynx without erythema or exudate Neck: No midline cervical tenderness, full spontaneous range of motion the neck, trachea midline, no adenopathy Heart: Regular rate and rhythm no murmurs or thrills Lungs: Clear to auscultation bilaterally without wheezes or crackles Abdomen: Soft, nontender, nondistended with active bowel sounds Musculoskeletal: Tenderness of the left low lumbar left sciatic area Neurologic: Awake, alert, and oriented x3, no gross focal neurologic deficits, cranial nerves intact as tested Psych: Mood and affect are appropriate Skin: No rashes Course Course ED Course: Reviewed most recent primary care visit from February 2024, patient was seen for multiple concerns including lower extremity swelling. Patient presents today with left-sided low back pain rate in the left leg. Pain is in the back leg and side of the calf, worse with laying. He has been taking Tylenol, ibuprofen. This. On exam here, vital a stable, left low lumbar sciatic tenderness, strength and sensation of the left leg intact. Symptoms are most consistent with lumbar radiculopathy, prednisone, oxycodone, and Flexeril ordered. Consider lumbar MRI but no red flag symptoms for cauda equinus syndrome or emergent intervention. Follow-up with primary care in 1 week. Discharge Plan Discharge Clinical Impression: Lumbar back pain with radiculopathy affecting left lower extremity Patient Disposition: Home, Self-Care Condition: Stable Instructions: Acute Low Back Pain (ED), Lumbar Radiculopathy (ED) Additional Instructions: Take prednisone as prescribed Continue Tylenol and ibuprofen at home. Use Percocet as needed for more severe pain. Follow-up with your primary care doctor in 5-7 days Activity Level: Activity as Tolerated Discharge Diet: Regular Prescriptions: No Action losartan 100 mg tablet 100 mg PO QDAY Qty: 90 3RF finasteride 5 mg tablet 5 mg PO QDAY Qty: 90 3RF chlorthalidone 25 mg tablet 12.5 mg PO QDAY Qty: 90 3RF alfuzosin 10 mg tablet extended release 24 hr 10 mg PO BID Qty: 180 2RF Rx Instructions: administer after the same meal each day rosuvastatin 10 mg tablet 10 mg PO QDAY Qty: 90 3RF tramadol 50 mg tablet 50 mg PO Q6H PRN (Reason: pain) Qty: 60 1RF Follow Up/Referrals: Ronnie Marquez MD [Primary Care Provider, Family Practice] Stand Alone Forms: MyHealth Info Instructions
[2024-12-26 04:36] VITALS: BP 148/74; PULSE 85; RESP 18; TEMP 36.7; O2SAT 96
[2024-12-26 04:37] VITALS: BP 148/74; PULSE 85; RESP 18; TEMP 36.7
== END 2024-12-26 04:37 | disposition home or self-care (01) ==
LOC: ED 04:33
PROVIDERS: Emergency Provider Family Medicine; PCP Family Medicine
DX: M54.16 Radiculopathy, lumbar region (principal)
CPT/HCPCS: 99283; 99284

== ENCOUNTER 2025-01-03 04:53 | Emergency (ER) | payer MEDICARE, SELFPAY ==
--- OUTSIDE RECORDS SUMMARY | 2025-01-03 04:55 | XMS_ITS | Clinical Summary ---
Author Organization [facility] Address [address] [place] [place] [address] Care Team Providers Care Infectious Disease Technician Name Role Phone Ronnie Marquez MD Primary [...] 24 hrs. 5 tablet 05/13/2020 9:34 AM WAREHOUSE SORTER 0 Active Active Problems No known active [...] Comments Blood Pressure 148/72 05/13/2020 9:00 AM WAREHOUSE SORTER Pulse 74 05/13/2020 9:00 AM WAREHOUSE SORTER Temperature 36.2 C (97.2 F) 05/13/2020 9:00 AM WAREHOUSE SORTER Respiratory Rate 16 05/13/2020 9:00 AM WAREHOUSE SORTER Oxygen Saturation 98% 05/13/2020 9:00 AM WAREHOUSE SORTER Inhaled Oxygen Concentration - - Weight 105.5 kg (232 lb 9.4 oz) 05/13/2020 6:21 AM WAREHOUSE SORTER Height 167.6 cm (5' 6) 05/13/2020 6:21 AM WAREHOUSE SORTER Body Mass Index 37.54 05/13/2020 6:21 AM WAREHOUSE SORTER Plan of Treatment Not on file Insurance [employer] MED[employer] ADVANTAGE MR Member Subscriber Plan / Payer (Ef fective 2023-Present) Name:Sonido Stubbs Maryuri Relation to Subscriber:Self Name:Sonido Stubbs Payer ID:[id number] (NAIC) Type:Not on file Address: [address] Advance Directives * Full Code (Latest Code Status on File) Date Activated Date Inactivated Comments 05/13/2020 6:02 AM 05/13/2020 11:46 AM Question Answer Comments Code Status Discussion: Not Discussed Care Teams Infectious Disease Technician Relationship Specialty Start Date End Date Ronnie Marquez MD [address] [place] [address] PCP - General Family Practice 03/06/24
[2025-01-03 05:13] VITALS: BP 157/117; PULSE 97; RESP 20; TEMP 36.6; O2SAT 95; BMI 37.1
--- NOTE | 2025-01-03 05:24 | ED.BACK ---
HPI - Back Pain/Injury General Chief Complaint: Back Injury/Pain Stated Complaint: Lower back pain Time Seen by Provider: 01/03/25 05:19 History of Present Illness HPI Narrative: Patient is a 69-year-old gentleman who was seen approximately week ago with low back pain with radiculopathy down the left leg. History with stroke course of prednisone as well as Percocet. He had resolution of his symptoms while on the prednisone with symptoms have now returned. He has no bowel or bladder symptoms no weakness no numbness no tingling. No signs of any other neurologic symptoms. Patient was to follow-up with his primary physician but is physician is out of the office this week. Patient unable to make it through the weekend with his discomfort he comes in today for further evaluation. No other significant symptoms noted. Pain is 8/10 and severe located in the left buttocks with mild radiculopathy down the left leg. Related Data Previous Rx's ?Medication ?Instructions ?Recorded alfuzosin 10 mg tablet,extended 10 mg PO BID #180 tabs 01/23/24 release 24 hr chlorthalidone 25 mg tablet 12.5 mg (1/2 x 25 mg) PO QDAY #90 02/25/24 tabs finasteride 5 mg tablet 5 mg PO QDAY #90 tabs 02/25/24 losartan 100 mg tablet 100 mg PO QDAY #90 tabs 02/25/24 rosuvastatin 10 mg tablet 10 mg PO QDAY #90 tabs 02/27/24 tramadol 50 mg tablet 50 mg PO Q6H PRN pain #60 tabs 12/26/24 Allergies Allergy/AdvReac Type Severity Reaction Status Date / Time No Known Drug Allergies Allergy Verified 02/25/24 12:37 Review of Systems Status of ROS: Reports: 10 or more systems reviewed and unremarkable except as noted in History and below [facility] Medical History Closed fracture of tibial plateau ?S82.143A - Displaced bicondylar fracture of unspecified tibia, initial encounter for closed fracture (ICD-10) History of needle biopsy of prostate with negative result ?Z98.890 - Other specified postprocedural states (ICD-10) Surgical History History of arthroscopy of right knee ?Z98.890 - Other specified postprocedural states (ICD-10) Family History Other Diabetes Prostate cancer Social History Smoking Status: Former smoker Second hand tobacco smoke exposure: No How often do you have a drink containing alcohol: 2-3 times a week AUDIT-C Alcohol total score: 3 Non-prescribed substance use: denies use Exam Narrative: Exam Narrative: EXAM GENERAL: Patient appears comfortable and well. EYES: No scleral icterus. ENT: Tympanic membranes and oropharynx normal. THYROID: no thyroid nodules or thyromegaly. LYMPH: No supraclavicular or cervical lymphadenopathy. SKIN: Visible skin seen during exam normal or with benign process only. EXT: No dependent lower extremity pedal edema. HEART: Regular rate and rhythm with no murmurs, rubs, or gallops. LUNGS: Clear to auscultation bilaterally with no crackles or wheezes. ABD: Soft, non tender, non distended. PSYCH: Good eye contact, speech is not pressured. Neurologic cranial nerves 2-12 grossly intact no focal defects. Const: Vital Signs, click to edit/add: Vital Signs - 24 hr 01/03/25 05:13 Temperature 97.9 F Pulse Rate [Left P ulse Oximeter] 97 Respiratory Rate 20 Blood Pressure [Ri ght Upper Arm] 157/117 H Pulse Oximetry 95 Oxygen Delivery Me thod Room Air Course Course ED Course: Patient seen examined. Previous records reviewed. Alarm symptoms. I do not believe imaging in the ER is indicated. I a I did refill his prednisone and placed him on [place] 1-2/4-6 as needed. He will limit his activity to activities of daily living and will follow-up Dr. Whitlock later in the week. Would recommend MRI were PT referral he if symptoms persist. Vital Signs Vital signs: Initial Vital Signs Temperature 97.9 F 01/03/25 05:13 Temperature Source Temporal Artery Scan 01/03/25 05:13 Pulse Rate 97 01/03/25 05:13 Respiratory Rate 20 01/03/25 05:13 Blood Pressure 157/117 H 01/03/25 05:13 Blood Pressure Mean 130 H 01/03/25 05:13 Blood Pressure Position Sitting 01/03/25 05:13 Pulse Oximetry 95 01/03/25 05:13 Oxygen Delivery Method Room Air 01/03/25 05:13 Vital Signs Temperature 97.9 F 01/03/25 05:13 Pulse Rate 97 01/03/25 05:13 Respiratory Rate 20 01/03/25 05:13 Blood Pressure 157/117 H 01/03/25 05:13 Pulse Oximetry 95 01/03/25 05:13 Oxygen Delivery Method Room Air 01/03/25 05:13 Temperature 97.9 F 01/03/25 05:13 Pulse Rate 97 01/03/25 05:13 Respiratory Rate 20 01/03/25 05:13 Blood Pressure 157/117 H 01/03/25 05:13 Pulse Oximetry 95 01/03/25 05:13 Oxygen Delivery Method Room Air 01/03/25 05:13 Discharge Plan Discharge Clinical Impression: Sciatica Patient Disposition: Home, Self-Care Condition: Stable Instructions: Sciatica (ED) Additional Instructions: Prednisone as directed [place] as directed Advanced diet activity as tolerated No driving or using machinery Follow-up with your doctor this week. Activity Level: No Restrictions Discharge Diet: Regular Prescriptions: No Action losartan 100 mg tablet 100 mg PO QDAY Qty: 90 3RF finasteride 5 mg tablet 5 mg PO QDAY Qty: 90 3RF chlorthalidone 25 mg tablet 12.5 mg PO QDAY Qty: 90 3RF alfuzosin 10 mg tablet extended release 24 hr 10 mg PO BID Qty: 180 2RF Rx Instructions: administer after the same meal each day rosuvastatin 10 mg tablet 10 mg PO QDAY Qty: 90 3RF tramadol 50 mg tablet 50 mg PO Q6H PRN (Reason: pain) Qty: 60 1RF Follow Up/Referrals: Ronnie Marquez MD [Primary Care Provider, Family Practice] Stand Alone Forms: MyHealth Info Instructions
--- NOTE | 2025-01-03 05:43 | PC.NURSE ---
Written and verbal D/C with insty meds provided. Pt able to walk with steady gait with us of v
== END 2025-01-03 05:49 | disposition home or self-care (01) ==
LOC: ED 05:29
PROVIDERS: Emergency Provider Internal Medicine; PCP Family Medicine
DX: M54.32 Sciatica, left side (principal)
CPT/HCPCS: 99283

== ENCOUNTER 2025-01-07 14:30 | Outpatient (CLI) | payer MEDICARE, SELFPAY | END 2025-01-07 14:31 | disposition home or self-care (01) | LOC: LKVREF 14:31 | PROVIDERS: PCP Family Medicine; Visit Provider Family Medicine | DX: Z12.5 Encounter for screening for malignant neoplasm of prostate (principal) | CPT/HCPCS: G0103 ==

== ENCOUNTER 2025-01-15 13:14 | Outpatient (CLI) | payer MEDICARE, SELFPAY ==
--- NOTE | 2025-01-15 13:30 | CRLHL7_ITS ---
For Patients: As a result of the 21st Century Cures Act, medical imaging exams and procedure reports are released immediately into your electronic medical record. You may view this report before your referring provider. If you have questions, please contact your health care provider. INDICATION: Lumbar radiculopathy. TECHNIQUE : Lumbar spine MRI without contrast. COMPARISON: None. FINDINGS : Five lumbar type vertebral bodies, with the last fully formed disc space designated as L5-S1. Normal lumbar lordotic curve. No recent compression fracture or marrow replacing process. Lower cord/conus signal is normal. The conus terminates at a normal location. No intradural lesion. No extraspinal soft tissue abnormalities. Discs/Endplates: L4-5 and L5-S1 moderate disc height loss and disc desiccation. Mild disc height loss and disc desiccation elsewhere. Mild type 1 reactive marrow edema involving the L4-5 left posterior endplates. Findings at individual levels as follows: T11-12: No spinal canal or neural foraminal stenosis. T12-L1: No spinal canal or neural foraminal stenosis. L1-2: Mild disc bulge. Bilateral facet arthrosis. No spinal canal or neural foraminal stenosis. L2-3: Mild disc osteophyte complex. Superimposed left subarticular/medial foraminal protrusion. Bilateral low-grade facet arthrosis. Mild spinal canal stenosis and mild left neural foraminal stenosis. No right neural foraminal stenosis or spinal canal stenosis. L3-4: Moderate disc osteophyte complex. Bilateral low-grade facet arthrosis and ligamentum flavum thickening. Mild spinal canal stenosis and mild bilateral neural foraminal stenosis. L4-5: 6 millimeters grade 1 anterolisthesis. Superior disc unroofing and superimposed moderate disc osteophyte complex. A left central to medial foraminal disc extrusion with cranial migration. Bilateral facet arthrosis. Moderately advanced spinal canal stenosis and advanced left neural foraminal stenosis with compression of the left L4 nerve root. [id number] right neural foraminal stenosis. L5-S1: Moderate disc osteophyte complex, asymmetric to the right. Bilateral facet arthrosis. Right subarticular recess stenosis with encroachment of the traversing S1 nerve root. Overall mild spinal canal stenosis. Mild left and moderate right neural foraminal stenosis with mild compression of the exiting right L5 nerve root. Imaged SI joints: Bilateral arthrosis. Imaged sacrum: Within normal limits. IMPRESSION: 1. No acute fracture or marrow replacing process. 2. At L4-5, moderately advanced spinal canal stenosis and advanced left neural foraminal stenosis with compression of the left L4 nerve root by an intraforaminal disc herniation. 3. At L5-S1, right subarticular recess stenosis with encroachment of the traversing S1 nerve root. Moderate right neural foraminal stenosis with mild compression of the exiting right L5 nerve root. 4. Additional scattered spondylosis without high-grade spinal canal/neural foraminal stenosis or compression of neural structures. Dictated by Marcio Dexter MD @ 01/16/2025 1:15:48 PM (Electronically Signed)
== END 2025-01-15 13:15 | disposition home or self-care (01) ==
LOC: MRI 13:15
PROVIDERS: PCP Family Medicine; Visit Provider Family Medicine
DX: M54.16 Radiculopathy, lumbar region (principal); M48.061 Spinal stenosis, lumbar region without neurogenic claudication; M48.07 Spinal stenosis, lumbosacral region; M47.896 Other spondylosis, lumbar region; R29.898 Other symptoms and signs involving the musculoskeletal system
CPT/HCPCS: 72148

== ENCOUNTER 2025-02-06 09:03 | Outpatient (CLI) | payer MEDICARE, SELFPAY | END 2025-02-06 09:04 | disposition home or self-care (01) | LOC: INJ CL 09:04 | PROVIDERS: PCP Family Medicine; Visit Provider Family Medicine | DX: M54.16 Radiculopathy, lumbar region (principal) | CPT/HCPCS: 64483; J1100; Q9966 ==

== ENCOUNTER 2025-04-28 08:29 | Outpatient (CLI) | payer MEDICARE, SELFPAY | END 2025-04-28 08:30 | disposition home or self-care (01) | LOC: INJ CL 08:29 | PROVIDERS: PCP Family Medicine; Visit Provider Family Medicine | DX: M54.16 Radiculopathy, lumbar region (principal); M51.369 Other intervertebral disc degeneration, lumbar region without mention of lumbar back pain or lower extremity pain | CPT/HCPCS: 62323; J0702; Q9966 ==